=== PATIENT | male | born 1995 | race Two or more races ===

== ENCOUNTER 2016-09-05 03:25 | Emergency (ER) | payer BC, OTHER ==
[~2016-09-05] VITALS: Ht 182.9 cm; Wt 90.7 kg
[~2016-09-05 03:25] MED LIST: ACET-868 PO; IBUP-1955 PO
[2016-09-05 03:48] VITALS: BP 122/80
--- NOTE | 2016-09-05 04:24 | NUR ---
SHANK BREAKER AT BEDSIDE FOR PORTABLE XRAY
[2016-09-05] MEDS ORDERED: HYDROCODONE/APAP 5/325MG 1 EACH TABLET ONE (04:44)
[2016-09-05] MEDS ORDERED: HYDROCODONE/APAP 5/325MG 1 EACH TABLET PO ONE (05:00)
== END 2016-09-05 04:50 | disposition home or self-care (01) ==
LOC: ER 03:27
DX: S92.311A Displaced fracture of first metatarsal bone, right foot, initial encounter for closed fracture (principal); F17.200 Nicotine dependence, unspecified, uncomplicated; W01.0XXA Fall on same level from slipping, tripping and stumbling without subsequent striking against object, initial encounter; Y93.02 Activity, running; Y92.89 Other specified places as the place of occurrence of the external cause; Y99.9 Unspecified external cause status
CPT/HCPCS: 73630-TC; A4606; Z7610

== ENCOUNTER 2017-01-03 18:52 | Emergency (ER) | payer MEDICAID, OTHER ==
[~2017-01-03] VITALS: Ht 182.9 cm; Wt 86.2 kg
[2017-01-03 18:52] VITALS: BP 123/79
[2017-01-03] MEDS ORDERED: DEXAMETHASONE SOD PHOSPHATE 10 MG/ML VIAL IM ONE (19:30)
[2017-01-03] MEDS ORDERED: KETOROLAC TROMETHAMINE INJ 60 MG/2 ML VIAL IM ONE (19:30)
[2017-01-03] MEDS ORDERED: KETOROLAC TROMETHAMINE INJ 30 MG/ML VIAL ONE (19:31)
[2017-01-03] MEDS ORDERED: DEXAMETHASONE SOD PHOSPHATE 10 MG/ML VIAL ONE (19:31)
== END 2017-01-03 19:56 | disposition home or self-care (01) ==
LOC: ER 18:59
DX: J02.9 Acute pharyngitis, unspecified (principal); F17.200 Nicotine dependence, unspecified, uncomplicated
CPT/HCPCS: 96372 ×2; 99284; 99406; A4606; Z7610

== ENCOUNTER 2017-10-28 04:58 | Emergency (ER) | payer OTHER ==
[~2017-10-28] VITALS: Ht 180.3 cm; Wt 84.8 kg
[2017-10-28 05:34] VITALS: BP 137/80
[2017-10-28] MEDS ORDERED: KETOROLAC TROMETHAMINE INJ 60 MG/2 ML VIAL IM ONE ×2 (05:51→06:00)
== END 2017-10-28 06:11 | disposition home or self-care (01) ==
LOC: ER 05:01
DX: S83.92XA Sprain of unspecified site of left knee, initial encounter (principal); F17.200 Nicotine dependence, unspecified, uncomplicated; X50.1XXA Overexertion from prolonged static or awkward postures, initial encounter; Y93.67 Activity, basketball; Y92.89 Other specified places as the place of occurrence of the external cause; Y99.8 Other external cause status
CPT/HCPCS: 73564-TC; A4606; J1885; Z7610

== ENCOUNTER 2021-02-01 20:42 | Emergency (ER) | payer MEDICAID, OTHER ==
[~2021-02-01] VITALS: Ht 193 cm; Wt 84.4 kg
--- NOTE | 2021-02-01 20:51 | NUR ---
pt bibself c/o dog bit to lip. pt aaox4 breathing evenly and unlabored. Per pt, his dog started fighting with another dog and when pt tired to break up the fight, pt's dog bit pt bottom lip. Pt attached to monitor and pox. INFRASTRU[employer]URE SOLUTIONS ARCHITECT at bedside for eval. EMT at bedside for wound cleaning. Pt given blanket and call light within reach.
--- NOTE | 2021-02-01 20:55 | NUR ---
upon assessment after wound cleaning pt has lac on rt side of jaw, two lacs on chin, and various lacs inside the mouth. UPHOLSTERY AUTO TRIMMER aware
[2021-02-01] MEDS ORDERED: LIDOCAINE 1%-EPI 1:100,000 20 ML VIAL TP ONE (21:00)
[2021-02-01] MEDS ORDERED: BACI/NEOM/POLY B OINT PKT 1 UDPKT PACKET TP ONE (21:00)
[2021-02-01] MEDS ORDERED: LIDOCAINE 0.5% HCL 50 ML VIAL ONE (21:05)
[2021-02-01] MEDS ORDERED: HYDROCODONE/APAP 5/325MG TABLET ONE (21:13)
--- NOTE | 2021-02-01 21:15 | NUR ---
waste reclaimer verbal order for norco 5-325mg po
--- NOTE | 2021-02-01 21:15 | NUR ---
nonprofit manager at bedside for procedure
[2021-02-01] MEDS ORDERED: HYDROCODONE/APAP 5/325MG TABLET PO ONE (21:30)
[2021-02-01] MEDS ORDERED: AMOX-430 PO (22:57)
--- NOTE | 2021-02-01 23:01 | NUR ---
Patient discharged to home in stable condition. Written and verbal after care instructions given. Patient verbalizes understanding of instruction. Pt ambulatory with a steady gait
[2021-02-01 23:04] VITALS: BP 138/81
== END 2021-02-01 23:01 | disposition home or self-care (01) ==
LOC: ER 20:43
DX: S01.81XA Laceration without foreign body of other part of head, initial encounter (principal); S01.511A Laceration without foreign body of lip, initial encounter; Z79.899 Other long term (current) drug therapy; W54.0XXA Bitten by dog, initial encounter; Y93.89 Activity, other specified; Y92.89 Other specified places as the place of occurrence of the external cause; Y99.8 Other external cause status
CPT/HCPCS: 12014; 99283; A4217; A6403; J3490

== ENCOUNTER 2021-09-30 13:23 | Emergency (ER) | payer OTHER ==
[~2021-09-30] VITALS: Ht 182.9 cm; Wt 90.7 kg
[~2021-09-30 13:23] MED LIST changes: +AMOX-430 PO
--- NOTE | 2021-09-30 13:45 | NUR ---
BIB GIRLFRIEND C/O SHARP/ STABBING BACK PAIN AND CHEST PAIN X 2 DAYS. AMBULATORY, AAOX4, IN PAIN 10/25. PLACED ON BED
--- NOTE | 2021-09-30 13:45 | NUR ---
Note ermias in EDM - 09/30/21 at 1358 by XOCHILTO BIB GIRLFRIEND C/O SHARP/ STABBING BACK PAIN AND CHEST PAIN X 2 DAYS. AMBULATORY, AAOX4, IN PAIN 10/25
--- NOTE | 2021-09-30 14:00 | NUR ---
DR PADILLA AT BED SIDE
[2021-09-30 14:15] LABS: BASOPHILS % (AUTO) 0.5 % (0.0-2.0); EOSINOPHILS % (AUTO) 3.3 % (0.0-6.0); HEMATOCRIT 40 % (39-51); HEMOGLOBIN 13.7 g/dL (13.5-17.5); LYMPHOCYTES # (AUTO) 2.3 K/uL (0.8-4.8); LYMPHOCYTES % (AUTO) 24.9 % (20.0-44.0); MEAN CORPUSCULAR HGB CONC 34 g/dl (31.0-36.0); MEAN CORPUSCULAR VOLUME 90 fL (80-96); MONOCYTES # (AUTO) 0.7 K/uL (0.1-1.30); MONOCYTES % (AUTO) 7.5 % (2.0-12.0); NEUTROPHILS % (AUTO) 63.8 % (43.0-81.0); PLATELET COUNT (AUTO) 298 K/uL (150-450); RED BLOOD CELL COUNT(AUTO) 4.44 MIL/uL (4.5-6.0); WHITE BLOOD COUNT (AUTO) 9.4 K/uL (4.3-11.0)
--- NOTE | 2021-09-30 14:15 | NUR ---
X-RAY TECH. AT BED SIDE
[2021-09-30 14:34] LABS: CALCIUM, SERUM 8.6 mg/dL (8.5-10.1); CARBON DIOXIDE 29 mmol/L (21-32); CHLORIDE 105 mmol/L (98-107); CREATININE 0.8 mg/dL (0.6-1.3); GLUCOSE 92 mg/dL (74-106); POTASSIUM 4.2 mmol/L (3.5-5.1); SODIUM SERUM 141 mmol/L (136-145); UREA NITROGEN, BLOOD 12 mg/dL (7-18)
[2021-09-30] MEDS ORDERED: IBUP-1955 PO (15:17)
[2021-09-30] MEDS ORDERED: CYCL10TA9 PO (15:17)
--- NOTE | 2021-09-30 15:28 | NUR ---
Patient discharged to home in stable condition. Written and verbal after care instructions given. Patient verbalizes understanding of instruction.
[2021-09-30 15:29] VITALS: BP 115/75
== END 2021-09-30 15:25 | disposition home or self-care (01) ==
LOC: ER 13:36
DX: R07.89 Other chest pain (principal); R05.9 Cough, unspecified; F17.200 Nicotine dependence, unspecified, uncomplicated; Z79.899 Other long term (current) drug therapy
CPT/HCPCS: 36415; 71045-TC; 71046; 80048-TC; 84484-TC; 85025-TC

== ENCOUNTER 2022-10-06 10:42 | Emergency (ER) | payer OTHER ==
[~2022-10-06] VITALS: Ht 182.9 cm; Wt 86.2 kg
[~2022-10-06 10:42] MED LIST changes: +CYCL10TA9 PO
--- NOTE | 2022-10-06 11:10 | NUR ---
IV LINE IS ESTABLISHED, BLOOD SPECIMEN COLLECTED AND SENT TO THE LAB.
--- NOTE | 2022-10-06 11:10 | NUR ---
C/O GENERALIZED, ABDOMINAL PAIN AND PAIN ON URINATION X 10 DAYS NAUSEA, VOMITING. DENIES FLANK PAIN. RATES PAIN 8/10. IN ROOM AIR AND DENIES SOB. RESPIRATION REGULAR AND UNLABORED. WARM BLANKET PROVIDED FOR COMFORT. WILL CONTINUE TO MONITOR THE PATIENT.
--- NOTE | 2022-10-06 11:10 | NUR ---
THE PATIENT IS TAKEN TO CT VIA [facility]
--- NOTE | 2022-10-06 11:25 | NUR ---
urine collected and sent to the lab
[2022-10-06 11:30] LABS: CALCIUM, SERUM 9.8 mg/dL (8.5-10.1); CREATININE 0.8 mg/dL (0.6-1.3); POTASSIUM 3.6 mmol/L (3.5-5.1)
[2022-10-06 11:37] LABS: ALBUMIN 4.2 g/dL (3.4-5.0); BILIRUBIN,DIRECT 0.1 mg/dL (0.0-0.2); BILIRUBIN,TOTAL 0.3 mg/dL (0.2-1.0); TOTAL PROTEIN, SERUM 7.8 g/dL (6.4-8.2)
[2022-10-06 11:43] LABS: HEMATOCRIT 41 % (39-51); HEMOGLOBIN 13.7 g/dL (13.5-17.5); LYMPHOCYTES # (AUTO) 1.1 K/uL (0.8-4.8); LYMPHOCYTES % (AUTO) 8.9 % (20.0-44.0); MEAN CORPUSCULAR HGB CONC 34 g/dl (31.0-36.0); MEAN CORPUSCULAR VOLUME 88 fL (80-96); MONOCYTES # (AUTO) 0.5 K/uL (0.1-1.30); MONOCYTES % (AUTO) 4.4 % (2.0-12.0); NEUTROPHILS # (AUTO) 10.2 K/uL (1.8-8.9); NEUTROPHILS % (AUTO) 86.7 % (43.0-81.0); PLATELET COUNT (AUTO) 355 K/uL (150-450); RED BLOOD CELL COUNT(AUTO) 4.63 MIL/uL (4.5-6.0); WHITE BLOOD COUNT (AUTO) 11.8 K/uL (4.3-11.0)
[2022-10-06 12:04] LABS: BILIRUBIN,URINE 2+ (NEGATIVE); COLOR,URINE YELLOW (YELLOW); LEUKOCYTE ESTERASE ,URINE NEGATIVE (NEGATIVE); NITRITE, URINE NEGATIVE (NEGATIVE); PH,URINE 6.5 (5.0-8.0); PROTEIN,URINE 1+ mg/dl (NEGATIVE); UGLUCOSE NEGATIVE (NEGATIVE); UROBILINOGEN,URINE 0.2 EU/dL (0.2)
[2022-10-06] MEDS ORDERED: IBUP-1957 PO (12:05)
--- NOTE | 2022-10-06 12:14 | NUR ---
IV removed. Catheter intact and site benign. Pressure and 4x4 applied to site. No bleeding noted.Patient discharged to home in stable condition. Written and verbal after care instructions given. Patient verbalizes understanding of instruction.
[2022-10-06 12:15] VITALS: BP 132/65
[2022-10-06 12:26] LABS: BACTERIA,URINE None seen /HPF (None Seen); MUCUS,URINE Moderate /LPF (None Seen); SQUAMOUS EPITHELIAL CELL,UR Rare /HPF (None Seen)
[2022-10-09] MEDS ORDERED: TDAP [DIPH/PERTUSSIS/TET] 0.5 ML VIAL IM ONE (19:57)
== END 2022-10-06 12:15 | disposition home or self-care (01) ==
LOC: ER 10:48
DX: R10.84 Generalized abdominal pain (principal); F17.200 Nicotine dependence, unspecified, uncomplicated; Z79.899 Other long term (current) drug therapy
CPT/HCPCS: 36415; 80048-TC; 80076-TC; 81001; 83690-TC; 85025-TC

== ENCOUNTER 2023-02-11 01:57 | Emergency (ER) | payer OTHER ==
[~2023-02-11] VITALS: Ht 182.9 cm; Wt 90.7 kg
[~2023-02-11 01:57] MED LIST changes: +IBUP-1957 PO
[2023-02-11 02:06] VITALS: BP 131/74; TEMP 98
[2023-02-11 03:29] VITALS: O2SAT 100
== END 2023-02-11 03:36 | disposition home or self-care (01) ==
LOC: ER 03:12
DX: S62.336A Displaced fracture of neck of fifth metacarpal bone, right hand, initial encounter for closed fracture (principal); F17.200 Nicotine dependence, unspecified, uncomplicated; Z60.2 Problems related to living alone; W22.01XA Walked into wall, initial encounter; Y93.89 Activity, other specified; Y92.89 Other specified places as the place of occurrence of the external cause; Y99.8 Other external cause status
CPT/HCPCS: 73130-TC

== ENCOUNTER 2023-12-14 01:24 | Emergency (ER) | payer OTHER ==
[~2023-12-14] VITALS: Ht 177.8 cm; Wt 99.8 kg
[2023-12-14 01:31] VITALS: BP 131/79; TEMP 98.5; O2SAT 98
[2023-12-14] MEDS ORDERED: HYDROCODONE/APAP 5/325MG TABLET ONE (01:57)
[2023-12-14] MEDS: HYDROCODONE/APAP 5/325MG TABLET PO ONE (02:05)
== END 2023-12-14 02:19 | disposition home or self-care (01) ==
LOC: ER 01:26
DX: H33.8 Other retinal detachments (principal); F19.10 Other psychoactive substance abuse, uncomplicated; F17.200 Nicotine dependence, unspecified, uncomplicated; Z60.2 Problems related to living alone

== ENCOUNTER 2024-07-05 00:51 | Emergency (ER) | payer OTHER | END 2024-07-05 01:08 | disposition left against medical advice (07) | LOC: ER 00:55 | DX: R06.02 Shortness of breath (principal); Z53.21 Procedure and treatment not carried out due to patient leaving prior to being seen by health care provider ==